=== PATIENT | male | born 1985 | race Caucasian/White ===

== ENCOUNTER 2018-07-25 20:48 | Emergency (ER) | payer BC ==
[~2018-07-25] VITALS: Ht 175.3 cm; Wt 118.2 kg
[~2018-07-25 20:48] MED LIST: ONE DAILY HEAL1 EACH PO; TESTOSTERONE1 POW; ULTRAM50 M1 PO
[2018-07-25 21:37] LABS: EOS # 0.2 (0.04-0.40); EOS % 2.8 % (0.0-4.0); HEMATOCRIT 43.4 % (42.0-52.0); HEMOGLOBIN 15.2 g/dL (13.5-18.0); LYMPH# 3.1 (1.50-4.00); MEAN CELL VOLUME 87 fl (78-100); MEAN CORPUSCULAR HEMOGLOBIN 31 pg (27-31); MEAN CORPUSCULAR HGB CONC 35 g/dL (33-37); MEAN PLATELET VOLUME 10.8 fl (7.4-10.4); MONO # 0.9 (0.20-0.80); NEU # 4.2 (1.40-6.50); PLATELET COUNT 232 K/mm3 (130-400); RED BLOOD COUNT 4.98 M/mm3 (4.20-5.60); RED CELL DISTRIBUTION WIDTH 12.9 % (11.5-14.5); WHITE BLOOD COUNT 8.5 K/mm3 (4.8-10.8)
[2018-07-25 21:48] LABS: ALBUMIN 4.6 g/dL (3.5-5.0); CALCIUM 9.6 mg/dL (8.4-10.2); POTASSIUM 3.8 mmol/L (3.6-5.0); TOTAL BILIRUBIN 0.5 mg/dL (0.2-1.3); TOTAL PROTEIN 7.7 g/dL (6.3-8.2)
[2018-07-25 21:58] LABS: PH-URINE 6.5 (5.0 - 8.0); URINE APPEARANCE CLEAR; URINE BILIRUBIN NEGATIVE (NEGATIVE); URINE BLOOD NEGATIVE (NEGATIVE); URINE COLOR YELLOW; URINE GLUCOSE NEGATIVE (NEGATIVE); URINE KETONE NEGATIVE (NEGATIVE); URINE LEUKOCYTE ESTERASE NEGATIVE (NEGATIVE); URINE NITRATE NEGATIVE (NEGATIVE); URINE PROTEIN(semi-quant) NEGATIVE (NEGATIVE); URINE UROBILINOGEN NORMAL (NORMAL); URINE WBC 0-1 /hpf (0-3)
[2018-07-25] MEDS ORDERED: METOPROLOL SUCC50 M1 PO (23:04)
[2018-07-25] MEDS ORDERED: KETOROLAC10 MG PO (23:04)
[2018-07-25 23:08] VITALS: BP 174/101
== END 2018-07-25 23:08 | disposition home or self-care (01) ==
LOC: ED 20:48
PROVIDERS: Family Medicine
DX: R10.11 Right upper quadrant pain (principal); M79.1 Myalgia; I10 Essential (primary) hypertension; R30.0 Dysuria; Z76.0 Encounter for issue of repeat prescription